=== PATIENT | male | born 1980 | race Caucasian/White ===

== ENCOUNTER 2016-08-15 09:39 | Emergency (ER) | payer OTHER ==
[~2016-08-15] VITALS: Ht 193 cm; Wt 87.6 kg
[~2016-08-15 09:39] MED LIST: PEN-VEE K,VEET500 MG PO; ULTRAM50 MG PO
[2016-08-15 10:27] LABS: MCH 27.7 PG (29.0-34.0); MCV 84.1 FL (86-99); MEAN PLAT.VOLUME 9.3 uM^3 (9.0-12.4); PLATELET COUNT 183 K/uL (156-360); RBC DIS.WIDTH-CV 13.1 % (11.8-14.6); RBC DIS.WIDTH-SD 40.1 % (39-53); RED BLOOD COUNT 5.23 M/uL (4.00-5.50); WHITE BLOOD COUNT 6.9 K/uL (4.1-10.2)
[2016-08-15 10:39] LABS: CHLORIDE 101 mEq/L (99-109); POTASSIUM 4.1 mEq/L (3.7-5.4); SODIUM 134 mEq/L (136-147)
[2016-08-15 10:42] LABS: GLUCOSE 104 mg/dL (70-99)
[2016-08-15 10:43] LABS: ANION GAP 7 MEQ/L (2-14)
[2016-08-15 10:44] LABS: TOTAL BILIRUBIN 0.6 mg/dL (0.0-1.0)
[2016-08-15 10:45] LABS: ALKALINE PHOSPHATASE 46 IU/L (3-129); GFR ESTIMATE (CALCULATED) 52 mL/min/
[2016-08-15 10:46] LABS: UREA NITROGEN (BUN) 12 mg/dL (9-23)
[2016-08-15 10:49] LABS: LIPASE 19 U/L (1.0-51.0)
[2016-08-15 10:50] LABS: TROP-I INTERPRETATION NEGATIVE; TROPONIN-I < 0.01 ng/mL (0.0-0.30)
[2016-08-15 11:57] LABS: ADD MIUA? NO; BILIRUBIN NEGATIVE; BLOOD NEGATIVE; COLOR YELLOW ((YELLOW)); GLUCOSE (STRIP) NEGATIVE; KETONES NEGATIVE; LEUKOCYTES NEGATIVE; NITRITE NEGATIVE; PROTEIN (STRIP) 30; SPECIFIC GRAVITY 1.031 (1.000-1.030); UROBILINOGEN 0.2 MG/DL (0.2-1.0)
[2016-08-15 12:18] VITALS: BP 121/66
[2016-08-15] MEDS ORDERED: VIBRAMYCIN100 MG PO (12:52)
[2016-08-15] MEDS ORDERED: ZOFRAN ODT4 MG PO (12:52)
[2016-08-15 14:32] LABS: LYME DISEASE SEROLOGY SCREEN NEGATIVE (NEGATIVE)
== END 2016-08-15 14:16 | disposition home or self-care (01) ==
LOC: EME 09:39
PROVIDERS: Nurse Practitioner Family
DX: A69.20 Lyme disease, unspecified (principal)
CPT/HCPCS: 71020; 80053; 81003; 83690; 84484; 85027; 86618; 87040; 93005; 99281; 99285; J1200; J1885; J2765; J7030